=== PATIENT | female | born 2000 | race Two or more races ===

== ENCOUNTER 2021-05-09 23:12 | Observation (INO) | payer MEDICAID, OTHER ==
[2021-05-10] MEDS ORDERED: DOCU-94 PO (00:51)
[2021-05-10] MEDS ORDERED: PREN1TAB48 PO (00:51)
== END 2021-05-10 01:03 | disposition home or self-care (01) ==
LOC: LDRP 23:12
PROVIDERS: ADMIT Obstetrics & Gynecology; ATTEND Obstetrics & Gynecology
DX: O62.9 Abnormality of forces of labor, unspecified (principal); Z3A.37 37 weeks gestation of pregnancy; Z79.899 Other long term (current) drug therapy
CPT/HCPCS: 59025; 81002; 82948; 82962; 94760; G0378

== ENCOUNTER 2021-05-11 09:55 | Observation (INO) | payer MEDICAID ==
[~2021-05-11 09:55] MED LIST: DOCU-94 PO; PREN1TAB48 PO
== END 2021-05-11 12:14 | disposition home or self-care (01) ==
LOC: LDRP 09:55
PROVIDERS: ADMIT Obstetrics & Gynecology; ATTEND Obstetrics & Gynecology
DX: O62.9 Abnormality of forces of labor, unspecified (principal); O99.891 Other specified diseases and conditions complicating pregnancy; M54.50 Low back pain, unspecified; R10.9 Unspecified abdominal pain; Z3A.38 38 weeks gestation of pregnancy
CPT/HCPCS: 59025; 81002; 84112; 94760; G0378; Q0114

== ENCOUNTER 2021-05-24 10:15 | Observation (INO) | payer MEDICAID ==
[~2021-05-24 10:15] MED LIST changes: -DOCU-94 PO
== END 2021-05-24 12:23 | disposition home or self-care (01) ==
LOC: LDRP 10:15
PROVIDERS: ADMIT Obstetrics & Gynecology; ATTEND Obstetrics & Gynecology
DX: O26.893 Other specified pregnancy related conditions, third trimester (principal); N89.8 Other specified noninflammatory disorders of vagina; O48.0 Post-term pregnancy; Z3A.40 40 weeks gestation of pregnancy
CPT/HCPCS: 59025; 81002; 94760; G0378

== ENCOUNTER 2021-05-26 12:11 | Observation (INO) | payer MEDICAID | END 2021-05-26 14:14 | disposition home or self-care (01) | LOC: LDRP 12:11 | PROVIDERS: ADMIT Obstetrics & Gynecology; ATTEND Obstetrics & Gynecology | DX: O26.893 Other specified pregnancy related conditions, third trimester (principal); N89.8 Other specified noninflammatory disorders of vagina; O48.0 Post-term pregnancy; Z3A.40 40 weeks gestation of pregnancy | CPT/HCPCS: 59025; 76818; 81002; 94760; G0378 ==

== ENCOUNTER 2021-05-28 10:09 | Observation (INO) | payer MEDICAID | END 2021-05-28 16:49 | disposition home or self-care (01) | LOC: LDRP 14:55 | PROVIDERS: ADMIT Obstetrics & Gynecology; ATTEND Obstetrics & Gynecology | DX: O62.9 Abnormality of forces of labor, unspecified (principal); O48.0 Post-term pregnancy; Z3A.40 40 weeks gestation of pregnancy | CPT/HCPCS: 59025; 76818; 81002; 94760; G0378 ==

== ENCOUNTER 2021-05-30 08:38 | Inpatient (IN) | payer MEDICAID ==
[~2021-05-30] VITALS: Ht 158 cm; Wt 93.0 kg
[2021-05-30] MEDS ORDERED: SODIUM CHLORIDE 0.9% 1,000 ML IV ONE (14:30)
[2021-05-30] MEDS ORDERED: SODIUM CHLORIDE 0.9% 1,000 ML IV SCH (16:40)
[2021-05-30] MEDS ORDERED: LACTATED RINGER'S 1,000 ML IV SCH (17:00)
[2021-05-30] MEDS ORDERED: LACT. RINGERS/OXYTOCIN 20UNITS 500 ML IV ONE ×2 (17:00→17:30)
[2021-05-30] MEDS ORDERED: PROMETHAZINE HCL 25 MG/ML 1ML IV PRN (17:00)
[2021-05-30] MEDS ORDERED: WITCH HAZEL-GLYCERIN PAD TOP PRN (17:00)
[2021-05-30] MEDS ORDERED: LIDOCAINE 2%HCL (LOCAL ANESTH.) INJ 10ml MDV IJ PRN (17:00)
[2021-05-30] MEDS ORDERED: BUTORPHANOL TARTRATE 2 MG/1 ML VIAL IV PRN ×2 (17:00)
[2021-05-30] MEDS ORDERED: PHISODERM TOP SOLN 240ML BTL TOP PRN (17:00)
[2021-05-30] MEDS ORDERED: DERMOPLAST 60ML BOTTLE TOP PRN (17:00)
[2021-05-30] MEDS ORDERED: miSOPROStol 50 MCG per PRE-CUT 1/2 TAB PO PRN (17:00)
[2021-05-30 17:26] LABS: Basophils # (auto) 0.1 10 ^3/uL (0-0.2); Basophils % (auto) 0.9 % (0.0-2.0); Eosinophils # (auto) 0 10 ^3/uL (0-0.8); Eosinophils % (auto) 0.5 % (0.0-7.0); Hematocrit 34.2 % (36.0-46.0); Hemoglobin 11.9 g/dL (12.2-16.2); Lymphocytes # (auto) 2.3 10 ^3/uL (0.4-5.4); Mean Corpuscular Hemoglobin 32.7 pg (28.0-32.0); Mean Corpuscular Hgb Conc. 34.7 g/dL (32.0-36.0); Mean Corpuscular Volume 94.3 fL (80.0-100.0); Monocytes # (auto) 0.4 10 ^3/uL (0-1.3); Monocytes % (auto) 4.5 % (0.0-12.0); Neutrophils # (auto) 5.1 10 ^3/uL (1.6-8.6); Neutrophils % (auto) 65.1 % (37.0-80.0); Nucleated Red Blood Cells % 0.2 %; Red Blood Cells 3.63 10^6/uL (4.0-5.20); Red Cell Distribution Width 13.6 % (11.8-14.3); White Blood Cell 7.9 10^3/uL (4.4-10.8)
[2021-05-30 17:47] LABS: Albumin 2.4 g/dL (3.4-5.0); BUN/Creatinine Ratio 7.9; Calcium 8.2 mg/dL (8.5-10.1); Potassium 3.9 mmol/L (3.5-5.1)
[2021-05-30 17:51] LABS: Urine Bacteria NONE SEEN /hpf (None Seen); Urine Blood Negative /uL (Negative); Urine Specific Gravity 1.007 (1.001-1.035); Urine WBC <1 /hpf (0 - 5)
[2021-05-30 17:53] LABS: INR 0.96 (0.9-1.15); Partial Thromboplastin Time 26.9 sec (23.6-33.0)
[2021-05-30 17:58] LABS: Bilirubin, Total 0.6 mg/dL (0.2-1.0); Total Protein 5.9 g/dL (6.4-8.2)
[2021-05-30 19:00] LABS: Alcohol, Urine < 3.0 mg/dL (0-10); Amphetamine Screen, Urine NEGATIVE (NEGATIVE); Barbiturate Scree,Urine NEGATIVE (NEGATIVE); Benzodiazephine Screen, Urine NEGATIVE (NEGATIVE); Cannabinoid Screen, Urine NEGATIVE (NEGATIVE); Cocaine Screen, Urine NEGATIVE (NEGATIVE); Opiate Scree,Urine NEGATIVE (NEGATIVE); Phencyclidine Screen, Urine NEGATIVE (NEGATIVE)
[2021-05-30] MEDS ORDERED: LACT. RINGERS/OXYTOCIN 20UNITS 1,000 ML IV SCH (22:35)
[2021-05-30] MEDS ORDERED: TERBUTALINE SULFATE 1 MG/ML 1ML VIAL SC PRN (22:45)
[2021-05-30] MEDS ORDERED: ROPIVACAINE HCL 200 ML EPI SCH (23:15)
[2021-05-30] MEDS ORDERED: NALOXONE HCL 0.4 MG/ML VIAL IV ONE (23:15)
[2021-05-30] MEDS ORDERED: fentaNYL CITRATE 100 MCG/2 ML VL IV ONE (23:15)
[2021-05-30] MEDS ORDERED: ePHEDrine SULFATE 50 MG/ML AMP IV ONE (23:15)
[2021-05-31] MEDS ORDERED: ROPIVACAINE HCL 200 ML EPI SCH (00:30)
[2021-05-31] MEDS ORDERED: ONDANSETRON ODT 4 MG TAB PO PRN (04:45)
[2021-05-31 07:00] VITALS: BP 111/57
[2021-05-31 08:06] LABS: RPR Non Reactive (Non Reactive)
[2021-05-31 11:30] VITALS: BP 105/55
[2021-05-31] MEDS: ACETAMINOPHEN 325 MG TAB PO PRN ×2 (12:56→18:20)
[2021-05-31 15:30] VITALS: BP 101/51
[2021-05-31 15:40] VITALS: BP 101/51
[2021-05-31 18:30] VITALS: BP 103/55
[2021-05-31 23:00] VITALS: BP 110/66
[2021-06-01 03:00] VITALS: BP 108/64
[2021-06-01] MEDS: IBUPROFEN 600 MG TAB PO PRN ×2 (03:03→09:53)
[2021-06-01 08:16] VITALS: BP 114/73
[2021-06-01 11:00] VITALS: BP 108/63
== END 2021-06-01 13:10 | disposition home or self-care (01) | DRG 560 ==
LOC: LDRP 10:55 → OBSVTOIN 16:50 → LDRP 17:05
PROVIDERS: ADMIT Obstetrics & Gynecology; ATTEND Obstetrics & Gynecology
PROC: 3E0P7VZ Introduction of Hormone into Female Reproductive, Via Natural or Artificial Opening (ICD-10-PCS; 2021-05-30)
PROC: 3E0DXGC Introduction of Other Therapeutic Substance into Mouth and Pharynx, External Approach (ICD-10-PCS; 2021-05-30)
PROC: 10E0XZZ Delivery of Products of Conception, External Approach (ICD-10-PCS; principal; 2021-05-31)
PROC: 3E0R3BZ Introduction of Anesthetic Agent into Spinal Canal, Percutaneous Approach (ICD-10-PCS; 2021-05-31)
PROC: 3E0R33Z Introduction of Anti-inflammatory into Spinal Canal, Percutaneous Approach (ICD-10-PCS; 2021-05-31)
DX: O69.81X0 Labor and delivery complicated by cord around neck, without compression, not applicable or unspecified (principal); Z37.0 Single live birth; O76 Abnormality in fetal heart rate and rhythm complicating labor and delivery; Z3A.41 41 weeks gestation of pregnancy; O77.0 Labor and delivery complicated by meconium in amniotic fluid; Z20.822 Contact with and (suspected) exposure to COVID-19
CPT/HCPCS: 36415; 59025; 59409; 62282; 76818; 80053; 80307; 81001; 81002; 85025; 85610; 85730; 86592; 86850; 86900; 86901; 94760; 96360; 96361; 96365; 96366; G0378; J2590